=== PATIENT | male | born 1990 | race Caucasian/White ===

== ENCOUNTER 2018-06-20 20:14 | Emergency (ER) | payer BC, OTHER ==
[2018-06-20 20:22] VITALS: RESP 18
--- NOTE | 2018-06-20 21:21 | ED ---
Psych HPI - General Chief Complaint: Psychiatric Symptoms Stated Complaint: mental health Time Seen by Provider: 06/20/18 21:01 Source: patient Mode of arrival: ambulatory - History of Present Illness Initial Comments: This patient is a 28-year-old man who presents to have help dealing with worsening of his depression. The patient states that he has had a lot of stress in his life. His girlfriend just broke up with him after they had spent time planning a trip to [place]. He states that he has also had some feelings that he would be better off . He is [place] and states that he does not currently have a plan. He states that he was talking with some friends and they recommended that he be seen in the emergency department to set up some therapy. The patient does have history of depression, and some anxiety. He takes Zoloft and is compliant with his treatment. At this point he does not believe he needs to be admitted the hospital but is looking to have a treatment plan set up. MD Complaint: suicidal ideation, feels depressed -: days(s) Associated Psychiatric Symptoms: depression History of same: Yes Improves With: none Worsens With: none Context: significant life stressor Associated Symptoms: denies other symptoms - Related Data Home Medications Medication Instructions Recorded Confirmed Sertraline [Zoloft] 200 mg PO DAILY 06/20/18 06/20/18 Previous Rx's Medication Instructions Recorded hydrOXYzine PAMOATE [Vistaril] 50 mg PO HS PRN #10 capsule 06/20/18 Allergies Allergy/AdvReac Type Severity Reaction Status Date / Time No Known Allergies Allergy Verified 06/20/18 20:46 Review of Systems ROS Statement: Those systems with pertinent positive or pertinent negative responses have been documented in the HPI. ROS Other: All systems not noted in ROS Statement are negative. Constitutional: Denies: fever Respiratory: Denies: cough, dyspnea Cardiovascular: Denies: chest pain Gastrointestinal: Denies: abdominal pain, vomiting, diarrhea Musculoskeletal: Reports: back pain (Chronic intermittent back pain) Skin: Denies: rash Neurological: Denies: headache Psychiatric: Reports: anxiety, depression, suicidal thoughts. Denies: auditory hallucinations, visual hallucinations, homicidal thoughts Past Medical History Past Medical History: No Reported History History of Any Multi-Drug Resistant Organisms: None Reported Past Surgical History: Back Surgery Past Psychological History: Anxiety, Depression Smoking Status: Current every day smoker Past Alcohol Use History: Occasional Past Drug Use History: Marijuana General Exam Limitations: no limitations General appearance: alert, in no apparent distress Head exam: Present: atraumatic, normocephalic Eye exam: Present: normal appearance. Absent: scleral icterus, conjunctival injection ENT exam: Present: normal oropharynx Neck exam: Present: normal inspection Respiratory exam: Present: normal lung sounds bilaterally. Absent: respiratory distress, wheezes, rales, rhonchi, stridor Cardiovascular Exam: Present: regular rate, normal rhythm, normal heart sounds. Absent: systolic murmur, diastolic murmur, rubs, gallop GI/Abdominal exam: Present: soft. Absent: distended, tenderness, guarding, rebound Extremities exam: Present: normal inspection. Absent: pedal edema Back exam: Present: normal inspection Neurological exam: Present: alert, normal gait Psychiatric exam: Present: normal affect, depressed. Absent: agitated, anxious , flat affect, manic, homicidal ideation, suicidal ideation Skin exam: Present: warm, dry, intact, normal color. Absent: rash Course Vital Signs 06/20/18 20:18 Temperature 98.5 F Pulse Rate 83 Respiratory 18 Rate Blood Pressure 163/95 O2 Sat by Pulse 100 Oximetry Disposition Clinical Impression: Adjustment disorder Disposition: HOME SELF-CARE Condition: Good Instructions: Mood Disorders (ED) Prescriptions: hydrOXYzine PAMOATE [Vistaril] 50 mg PO HS PRN #10 capsule PRN Reason: Anxiety Is patient prescribed a controlled substance at d/c from ED?: No Referrals: Alexandro Morrow DO [Primary Care Provider] - 1-2 days
[2018-06-20 23:25] VITALS: BP 128/71; PULSE 71; TEMP 99.4
== END 2018-06-20 23:25 | disposition home or self-care (01) ==
LOC: EC 20:14
DX: F43.23 Adjustment disorder with mixed anxiety and depressed mood (principal); F17.200 Nicotine dependence, unspecified, uncomplicated; Z79.899 Other long term (current) drug therapy
CPT/HCPCS: 82075; 99285